=== PATIENT | female | born 2000 | race Hispanic/Latino ===

== ENCOUNTER 2025-05-01 11:45 | Emergency (ER) | payer OTHER ==
[~2025-05-01] VITALS: Ht 170.2 cm; Wt 103.4 kg
[2025-05-01] MEDS: KETOROLAC TROMETHAMINE 60 MG/2 ML VIAL IM ONE (12:39)
[2025-05-01] MEDS: WATER STERILE 10 ML VIAL INJ SCH (12:50)
[2025-05-01] MEDS: PROCHLORPERAZINE EDISYLATE 5 MG/ML VIAL IM ONE ×2 (12:50→14:22)
[2025-05-01] MEDS: METHYLPREDNISOLONE SOD SUCC 125 MG/2ML VIAL IM SCH (12:50)
[2025-05-01 13:00] VITALS: BP 140/84; PULSE 95; RESP 18
[2025-05-01] MEDS ORDERED: NAPROSYN500 MG PO (13:58)
[2025-05-01] MEDS ORDERED: BUTALB-ACETAMI1 EACH PO (13:58)
[2025-05-01 14:00] VITALS: PULSE 82; RESP 18; TEMP 98.1; O2SAT 100
== END 2025-05-01 14:40 | disposition home or self-care (01) ==
LOC: ER 12:25
DX: G44.209 Tension-type headache, unspecified, not intractable (principal); F41.9 Anxiety disorder, unspecified; F32.A Depression, unspecified
CPT/HCPCS: 99283; J0780; J1885